=== PATIENT | female | born 1960 | race Caucasian/White ===

== ENCOUNTER 2018-02-02 05:33 | Observation (INO) | payer OTHER ==
[2018-02-02] MEDS: HYDROmorphONE 1 MG/ML SYG IV (07:00)
[2018-02-02] MEDS: ONDANSETRON 4 MG INJ IV (07:00)
[2018-02-02 07:03] LABS: ADD MAN DIFF? NO
[2018-02-02 07:08] LABS: WHITE BLOOD COUNT 10.3 10^3/ul (4.8-10.8)
[2018-02-02 07:08] LABS: ABNORMAL IP MESSAGE 1; BASOPHILS % 0.4 % (0.0-2.0); EOSINOPHILS % 0.1 % (0.0-7.0); HEMATOCRIT 38.9 % (37.0-47.0); HEMOGLOBIN 11.9 g/dl (12.0-16.0); LYMPHOCYTES # 1.4 10^3/ul (0.8-2.9); LYMPHOCYTES % 13.8 % (15.0-51.0); MEAN CORPUSCULAR HEMOGLOBIN 23.7 pg (29.0-33.0); MEAN CORPUSCULAR HGB CONC 30.6 g/dl (32.0-37.0); MEAN CORPUSCULAR VOLUME 77.3 fl (82.0-101.0); MEAN PLATELET VOLUME 9.4 fl (7.4-10.4); MONOCYTE # 0.6 10^3/ul (0.3-0.9); MONOCYTES % 5.9 % (0.0-11.0); NEUTROPHIL # 8.2 10^3/ul (1.6-7.5); NEUTROPHILS % 79.5 % (39.0-77.0); PLATELET COUNT 275 10^3/UL (140-415); RED BLOOD COUNT 5.03 10^6/ul (4.20-5.40); RED CELL DISTRIBUTION WIDTH 26.5 % (11.5-14.5)
[2018-02-02 07:12] LABS: POSITIVE DIFF @See below
[2018-02-02 07:15] LABS: ADD UMIC YES; UR ASCORBIC ACID NEGATIVE (NEGATIVE); UR BACTERIA FEW /HPF (NONE SEEN); UR BILIRUBIN (Dip) NEGATIVE (NEGATIVE); UR BLOOD (Dip) 2+ mg/dL (NEGATIVE); UR CLARITY SLIGHTLY CLOUDY (CLEAR); UR COLOR YELLOW (YELLOW); UR GLUCOSE (Dip) NEGATIVE (NEGATIVE); UR KETONES (Dip) NEGATIVE (NEGATIVE); UR LEUKOCYTE ESTERASE (Dip) 1+ Leu/ul (NEGATIVE); UR MUCUS FEW /HPF (NONE SEEN); UR NITRITE (Dip) NEGATIVE (NEGATIVE); UR RBC 3 /HPF (0-5); UR SPECIFIC GRAVITY (Dip) 1.011 (1.003-1.030); UR SQUAMOUS EPITHELIAL CELL FEW /HPF (FEW); UR TOTAL PROTEIN (Dip) NEGATIVE (NEGATIVE); UR UROBILINOGEN (Dip) NEGATIVE (NEGATIVE); UR WBC 8 /HPF (0-5)
[2018-02-02 07:27] LABS: ALANINE AMINOTRANSFERASE 36 IU/L (13-69); ALBUMIN 4.4 g/dl (3.3-4.9); ALBUMIN/GLOBULIN RATIO 1.25; ALKALINE PHOSPHATASE 117 IU/L (42-121); ANION GAP 10 (5-13); ASPARTATE AMINO TRANSFERASE 36 IU/L (15-46); BILIRUBIN,INDIRECT 0.4 mg/dl (0-1.1); BILIRUBIN,TOTAL 0.4 mg/dl (0.2-1.3); BLOOD UREA NITROGEN 12 mg/dl (7-20); CALCIUM 9.3 mg/dl (8.4-10.2); CARBON DIOXIDE 28 mmol/L (21-31); CHLORIDE 102 mmol/L (97-110); CREATININE 0.42 mg/dl (0.44-1.00); Estimated GFR > 60 mL/min (>60); GLUCOSE 100 mg/dl (70-220); POTASSIUM 3.8 mmol/L (3.5-5.1); SODIUM 140 mmol/L (135-144); TOTAL PROTEIN 7.9 g/dl (6.1-8.1)
[2018-02-02] MEDS: SOD CHLORIDE 0.9% 100 ML (08:45)
[2018-02-02] MEDS: IOHEXOL 300MG/ML 150 ML BTL (08:45)
[2018-02-02] MEDS ORDERED: SOD CHLORIDE 0.9% 1,000 ML IV (12:21)
[2018-02-02] MEDS: ERTAPENEM SODIUM 1 GM in SOD CHLORIDE 0.9% 100 ML IVPB (12:27)
[2018-02-02] MEDS ORDERED: ACETAMINOPHEN 325 MG TAB PO (12:30)
[2018-02-02] MEDS ORDERED: ONDANSETRON 4 MG INJ IV ×4 (12:30→22:00)
[2018-02-02] MEDS ORDERED: NACL 0.9% 3 ML SYG IV (14:00)
[2018-02-02] MEDS ORDERED: HYDROCODONE/APAP (5/325) TAB PO (14:00)
[2018-02-02] MEDS: SOD CHLORIDE 0.9% 1,000 ML IV ×2 (16:03→21:58)
[2018-02-02] MEDS: PIPER-TAZO 3.375 GM IV (PMX) 100 ML IVPB ×3 (16:04→23:49)
[2018-02-02] MEDS: morphine 2 MG INJ IV (17:06)
[2018-02-02] MEDS ORDERED: PROPOFOL 20 ML (20:44)
[2018-02-02] MEDS ORDERED: ROCURONIUM 50 MG INJ (20:46)
[2018-02-02] MEDS ORDERED: DEXAMETHASONE 4 MG/ML 1 ML INJ (21:20)
[2018-02-02] MEDS: BUPIVACAINE 0.25%/EPI (MDV) 50 ML VIAL INJ (21:22)
[2018-02-02] MEDS ORDERED: ONDANSETRON 4 MG INJ (21:24)
[2018-02-02] MEDS ORDERED: SUGAMMADEX SODIUM 200 MG/2 ML VIAL IV (21:39)
[2018-02-02] MEDS ORDERED: MEPERIDINE 25 MG INJ (21:59)
[2018-02-02] MEDS ORDERED: FENTAnyl 50 MCG/ML VIAL IV ×3 (22:00)
[2018-02-02] MEDS ORDERED: hydrALAzine 20 MG INJ IV (22:00)
[2018-02-02] MEDS ORDERED: LABETALOL HCL 20MG INJ IV (22:00)
[2018-02-02] MEDS ORDERED: KETOROLAC 30 MG INJ IV (22:00)
[2018-02-02] MEDS ORDERED: ALBUTEROL 0.083% (NEB) 2.5 MG/3 ML AMP HHN (22:00)
[2018-02-02] MEDS ORDERED: METOCLOPRAMIDE 10 MG INJ IV (22:00)
[2018-02-02] MEDS ORDERED: morphine 2 MG INJ IV (22:00)
[2018-02-02] MEDS ORDERED: MIDAZOLAM 1 MG/ML 2 ML INJ IV (22:00)
[2018-02-02] MEDS ORDERED: OXYCODONE/ACETAMINOPHEN (5/325) TAB PO ×4 (22:00)
[2018-02-02] MEDS ORDERED: HYDROmorphONE 1 MG/5 ML IV SYRINGE IV ×3 (22:00)
[2018-02-02] MEDS ORDERED: DIPHENHYDRAMINE 50 MG INJ IV (22:00)
[2018-02-02] MEDS ORDERED: EPHEDrine SULFATE 50 MG/5 ML SYG IV (22:00)
[2018-02-02] MEDS: MEPERIDINE 25 MG INJ IV (22:05)
[2018-02-02] MEDS: HYDROmorphONE 1 MG/5 ML IV SYRINGE IV ×2 (22:11→22:29)
[2018-02-03] MEDS: morphine 2 MG INJ IV (02:13)
[2018-02-03 05:56] LABS: ADD MAN DIFF? NO
[2018-02-03 05:57] LABS: ABNORMAL IP MESSAGE 1; BASOPHILS % 0.1 % (0.0-2.0); HEMATOCRIT 34.5 % (37.0-47.0); HEMOGLOBIN 10.5 g/dl (12.0-16.0); LYMPHOCYTES # 0.6 10^3/ul (0.8-2.9); LYMPHOCYTES % 4.1 % (15.0-51.0); MEAN CORPUSCULAR HEMOGLOBIN 23.9 pg (29.0-33.0); MEAN CORPUSCULAR HGB CONC 30.4 g/dl (32.0-37.0); MEAN CORPUSCULAR VOLUME 78.4 fl (82.0-101.0); MEAN PLATELET VOLUME 9.5 fl (7.4-10.4); MONOCYTE # 0.3 10^3/ul (0.3-0.9); NEUTROPHIL # 12.5 10^3/ul (1.6-7.5); NEUTROPHILS % 93.3 % (39.0-77.0); PLATELET COUNT 229 10^3/UL (140-415); RED CELL DISTRIBUTION WIDTH 26.4 % (11.5-14.5)
[2018-02-03 05:57] LABS: WHITE BLOOD COUNT 13.4 10^3/ul (4.8-10.8)
[2018-02-03] MEDS: PIPER-TAZO 3.375 GM IV (PMX) 100 ML IVPB (06:18)
[2018-02-03 06:30] LABS: POSITIVE DIFF @See below
[2018-02-03 06:39] LABS: MAGNESIUM 1.8 mg/dl (1.7-2.5)
[2018-02-03 06:39] LABS: PHOSPHORUS 4.1 mg/dl (2.5-4.9)
[2018-02-03 06:49] LABS: ALANINE AMINOTRANSFERASE 32 IU/L (13-69); ALBUMIN 3.7 g/dl (3.3-4.9); ALBUMIN/GLOBULIN RATIO 1.08; ALKALINE PHOSPHATASE 87 IU/L (42-121); ANION GAP 12 (5-13); ASPARTATE AMINO TRANSFERASE 25 IU/L (15-46); BILIRUBIN,INDIRECT 0.5 mg/dl (0-1.1); BILIRUBIN,TOTAL 0.5 mg/dl (0.2-1.3); BLOOD UREA NITROGEN 9 mg/dl (7-20); CALCIUM 8.5 mg/dl (8.4-10.2); CARBON DIOXIDE 24 mmol/L (21-31); CHLORIDE 105 mmol/L (97-110); CREATININE 0.45 mg/dl (0.44-1.00); Estimated GFR > 60 mL/min (>60); GLUCOSE 118 mg/dl (70-220); POTASSIUM 4.1 mmol/L (3.5-5.1); SODIUM 141 mmol/L (135-144); TOTAL PROTEIN 7.1 g/dl (6.1-8.1)
[2018-02-03] MEDS: SOD CHLORIDE 0.9% 1,000 ML IV (09:54)
== END 2018-02-03 11:05 | disposition home or self-care (01) ==
LOC: E/R 05:33 → 2NE 12:22
DX: K35.30 Acute appendicitis with localized peritonitis, without perforation or gangrene (principal); D50.9 Iron deficiency anemia, unspecified; Z98.51 Tubal ligation status
CPT/HCPCS: 36415; 74177; 80053; 81001; 83735; 84100; 85025; 87086; 88304; 96374; 96375; 99285-25

== ENCOUNTER → 2018-06-13 | Emergency (ER) | payer OTHER ==
[2018-06-13] MEDS: LORATADINE 10 MG TAB PO (19:27)
== END | disposition home or self-care (01) ==
LOC: E/R 14:45
DX: J01.90 Acute sinusitis, unspecified (principal)
CPT/HCPCS: 99282; Z7502